=== PATIENT | male | born 2000 | race Caucasian/White ===

== ENCOUNTER 2024-05-30 02:24 | Emergency (ER) | payer MEDICAID, SELFPAY ==
--- NOTE | 2024-05-30 | ECG_ITS ---
Test Reason : CP Blood Pressure : / mmHG Vent. Rate : 086 BPM Atrial Rate : 086 BPM P-R Int : 136 ms QRS Dur : 076 ms QT Int : 324 ms P-R-T Axes : 074 066 063 degrees QTc Int : 387 ms Normal sinus rhythm Normal ECG No previous ECGs available Referred By: Generic ED Physician Electronically Signed By:Andrew Merino
--- NOTE | ~2024-05-30 | XR_ITS ---
EXAMINATION: XR CHEST CLINICAL INFORMATION: Shortness of breath. COMPARISON: November 23, 2021 TECHNIQUE: Frontal view of the chest was obtained. FINDINGS: No significant abnormality is noted involving the heart, lungs, mediastinum, bony thorax or soft tissues. XR/XR chest 1V IMPRESSION: Unremarkable examination. Electronically signed by: Deion Stuart MD 05/30/2024 03:41 AM EDT
[2024-05-30 02:28] VITALS: BP 116/71; PULSE 89; RESP 18; TEMP 37.3; O2SAT 96; BMI 27.2
--- NOTE | 2024-05-30 02:39 | ED_ITS ---
HPI - Chest Pain General Chief Complaint: Chest Pain Stated Complaint: hard time breathing, chest burning, headache Time Seen by Provider: 05/30/24 02:38 Source: patient Mode of arrival: ambulatory Limitations: no limitations History of Present Illness ED Provider: sid CUEVAS narrative: Patient no significant past medical history shortness of breath for last few days patient's used to vape not vaping anymore under increased stress as new baby's coming in. Related Data Previous Rx's ?Medication ?Instructions ?Recorded albuterol sulfate 90 mcg/actuation 2 puff inhalation Q6H PRN 05/30/24 aerosol inhaler shortness of breath or wheezing #8.5 grams prednisone 20 mg tablet 40 mg (2 x 20 mg) PO DAILY #10 tabs 05/30/24 Allergies Allergy/AdvReac Type Severity Reaction Status Date / Time amoxicillin Allergy Hives Verified 05/30/24 02:32 Review of Systems 2 Review of Systems: Yes all other systems are reviewed and are negative PMFSH Social History Social History Advance Directives: No Advance Directives Information Provided: Yes Physical Exam 2 Vital Signs: Vital Signs: Last Vital Signs Temp 98.1 F 05/30/24 05:17 Pulse 85 05/30/24 05:17 Resp 16 05/30/24 05:17 BP 113/72 05/30/24 05:17 Pulse Ox 97 05/30/24 05:17 O2 Del Method Room Air 05/30/24 05:17 BMI result Body Mass Index 27.2 Appearance: Alert. Oriented X3. No acute distress. ENT: Pharynx normal. Oral Mucosa moist Neck: Normal inspection. Neck supple. CVS: Normal heart rate and rhythm. Pulses normal. Respiratory: No respiratory distress. Equal air entry bilateral, prolonged expiration Abdomen: Soft and nontender. Bowel sounds are present, no mass palpable, no CVA tenderness Skin: Skin warm and dry. Normal skin color. Normal skin turgor. Extremities: No lower extremity edema. No calf tenderness Neuro: Oriented X 3. No motor deficit. Medications Administered Discontinued Medications Generic Name Dose Route Start Last Admin Trade Name Freq PRN Reason Stop Dose Admin Albuterol Sulfate 2 puff 05/30/24 06:10 05/30/24 06:16 Albuterol Sulfate 90 Mcg 8 Gm Inhaler INHALE 05/30/24 06:11 2 puff ONCE ONE Administration Albuterol Sulfate 2.5 mg/ 0 mg 05/30/24 02:42 05/30/24 02:54 Albuterol/Ipratropium 3 ml INHALE 05/30/24 02:43 7.5 dose ONCE ONE Administration Prednisone 40 mg 05/30/24 06:02 05/30/24 06:15 Prednisone 20 Mg Tablet PO 05/30/24 06:03 40 mg ONCE ONE Administration Medical Decision Making Differential Diagnosis Differential Diagnoses: The differential diagnosis associated with the presentation includes Bronchitis/pneumonia/asthma Lab Data MDM Lab Attestation statement: I reviewed the patient's lab results. 05/30/24 02:46 05/30/24 02:46 Labs: Lab Results 05/30/24 05/30/24 Range/Units 02:46 05:24 WBC 13.9 H (4.8-10.8) X10*3/uL RBC 5.07 (4.60-5.80) X10*6/uL Hgb 15.2 (14.0-18.0) g/dl Hct 43.5 (42.0-52.0) % MCV 85.8 (80.0-98.0) fL MCH 30.0 (27.0-33.0) pg MCHC 34.9 (31.0-36.0) g/dl RDW 13.2 (11.0-16.0) % Plt Count 252 (160-400) X10*3/uL MPV 9.8 (9.4-12.4) fL Immature Gran % (Auto) 0.3 (0.0-0.4) % Neut % (Auto) 76.1 H (45-73) % Lymph % (Auto) 12.0 L (20-40) % [place] % (Auto) 6.8 (2-11) % Eos % (Auto) 4.2 H (0-4) % Baso % (Auto) 0.6 (0-2) % Lymph # (Auto) 1.7 (1.2-4.9) X10*3/uL [place] # (Auto) 0.9 (0.1-1.2) X10*3/uL Eos # (Auto) 0.6 H (0.0-0.4) X10*3/uL Baso # (Auto) 0.1 (0.0-0.2) X10*3/uL Abs Immat Gran (auto) 0.04 H (0.00-0.03) X10*3/uL Absolute Neuts (auto) 10.6 H (2.0-8.3) x10*3/uL Absolute Nucleated RBC 0.000 (0.0-0.012) X10*3/uL Nucleated RBC % (auto) 0.0 (0.0-0.2) /100WBC Sodium 138 (135-145) mmol/L Potassium 3.5 (3.3-5.1) mmol/L Chloride 104 (96-108) mmol/L Carbon Dioxide 24 (22-29) mmol/L Anion Gap 14 (12-20) BUN 12 (9-16) mg/dL Creatinine 1.08 (0.5-1.4) mg/dL Estim Creat Clear Calc 98.6 Estimated GFR > 60 Random Glucose 91 (60-115) mg/dL Calcium 9.9 (8.4-10.2) mg/dL Total Bilirubin 0.8 (0.0-1.0) mg/dL AST 38 H (5-37) U/L ALT 71 H (0-40) U/L Alkaline Phosphatase 92 (39-117) U/L Troponin I High Sens < 2.7 (<3.5-35.0) ng/L Total Protein 7.9 (6.5-8.0) g/dL Albumin 4.7 (3.5-5.0) g/dL Urine Color Yellow Urine Appearance Clear Urine pH 6.5 (5.0-9.0) Ur Specific Rentz 1.025 (1.005-1.025) Urine Protein Negative (Neg-Trace) mg/dL Urine Glucose (UA) Negative (Negative) mg/dL Urine Ketones Trace (Negative) mg/dL Urine Blood Negative (Negative) Urine Nitrite Negative (Negative) Ur Leukocyte Esterase Negative (Negative) Urine RBC 0-2 (0-2) /HPF Urine WBC 0-5 (0-5) /HPF Ur Squamous Epith Cells 0-2 (0-2) /HPF Urine Bacteria None Seen (None Seen) Hyaline Casts 0-2 (0-2) /LPF Urine Opiates Screen Not Detected (Not Detect) Ur Buprenorphine Scrn Not Detected (Not Detect) ng/mL Ur Oxycodone Screen Not Detected (Not Detect) ng/mL Urine Methadone Screen Not Detected (Not Detect) ng/mL Urine Fentanyl Screen Not Detected (Not Detect) Ur Barbiturates Screen Not Detected (Not Detect) Ur Phencyclidine Scrn Not Detected (Not Detect) Ur Amphetamines Screen Not Detected (Not Detect) U Benzodiazepines Scrn Not Detected (Not Detect) Urine Cocaine Screen Not Detected (Not Detect) U Marijuana (THC) Screen POSITIVE H (Not Detect) Independent Interpretation I performed an independent interpretation of an: Plain X-Ray Radiology Impression Discussion of test interpretation with radiology: I have reviewed the radiologist's reading. Discharge Plan Discharge Clinical Impression: Allergic bronchitis Patient Disposition: Home, Self-Care Instructions: Acute Bronchitis (ED) Prescriptions: New prednisone 20 mg tablet 40 mg PO DAILY Qty: 10 0RF albuterol sulfate 90 mcg/actuation HFA aerosol inhaler 2 puff inhalation Q6H PRN (Reason: shortness of breath or wheezing) Qty: 8.5 0RF Print Language: Luxembourgish
[2024-05-30 02:52] LABS: MANUAL DIFF FLAG NO
[2024-05-30 02:53] LABS: Basophils Absolute Auto 0.1 X10*3/uL (0.0-0.2); Basophils Percent Auto 0.6 % (0-2); Eosinophils Absolute Auto 0.6 X10*3/uL (0.0-0.4); Eosinophils Percent Auto 4.2 % (0-4); Hematocrit 43.5 % (42.0-52.0); Hemoglobin 15.2 g/dl (14.0-18.0); Imm Gran Abs Auto 0.04 X10*3/uL (0.00-0.03); Imm Gran Pct Auto 0.3 % (0.0-0.4); Lymphocytes Absolute Auto 1.7 X10*3/uL (1.2-4.9); Mean Corpuscular HGB Conc 34.9 g/dl (31.0-36.0); Mean Corpuscular Volume 85.8 fL (80.0-98.0); Mean Platelet Volume 9.8 fL (9.4-12.4); Monocytes Absolute Auto 0.9 X10*3/uL (0.1-1.2); Monocytes Percent Auto 6.8 % (2-11); Neutrophils Absolute Auto 10.6 x10*3/uL (2.0-8.3); Neutrophils Percent Auto 76.1 % (45-73); Platelet Count 252 X10*3/uL (160-400); Red Blood Count 5.07 X10*6/uL (4.60-5.80); Red Cell Distribution Width 13.2 % (11.0-16.0); White Blood Count 13.9 X10*3/uL (4.8-10.8)
[2024-05-30] MEDS: Albuterol Sulfate 2.5 MG, Albuterol/Iprat 2.5/0.5MG 3 ML 3 ML INHALE (02:54)
[2024-05-30 02:57] VITALS: PULSE 87; RESP 20; O2SAT 99
[2024-05-30 03:09] LABS: Alanine Aminotransferase 71 U/L (0-40); Albumin Level 4.7 g/dL (3.5-5.0); Alkaline Phosphatase 92 U/L (39-117); Anion Gap 14 (12-20); Aspartate Amino Transferase 38 U/L (5-37); Bilirubin Total 0.8 mg/dL (0.0-1.0); Blood Urea Nitrogen 12 mg/dL (9-16); Calcium 9.9 mg/dL (8.4-10.2); Carbon Dioxide 24 mmol/L (22-29); Chloride 104 mmol/L (96-108); Creatinine Clr Calc Pharmacy 98.6; Estimated Glomerular Filt Rate > 60; Glucose Random 91 mg/dL (60-115); Potassium 3.5 mmol/L (3.3-5.1); Sodium 138 mmol/L (135-145); Total Protein 7.9 g/dL (6.5-8.0)
[2024-05-30 03:14] LABS: Troponin-I High Sensitivity < 2.7 ng/L (<3.5-35.0)
[2024-05-30 05:17] VITALS: BP 113/72; PULSE 85; RESP 16; TEMP 36.7; O2SAT 97
[2024-05-30 05:31] LABS: Appearance Urine Clear; Color Urine Yellow; Glucose Urine UA Negative (Negative); Leukocyte Esterase Urine Negative (Negative); Nitrite Urine Negative (Negative); PH 6.5 (5.0-9.0); Specific Gravity - Urine 1.025 (1.005-1.025); Urine Blood Negative (Negative); Urine Ketones Trace mg/dL (Negative); Urine Protein Negative (Neg-Trace)
[2024-05-30 05:36] LABS: Bacteria Urine None Seen (None Seen); Hyaline Casts Urine 0-2 /LPF (0-2); RBC Urine 0-2 /HPF (0-2); Squamous Epithelial Cell Urine 0-2 /HPF (0-2); WBC Urine 0-5 /HPF (0-5)
[2024-05-30 05:46] LABS: Amphetamine Screen Urine Not Detected (Not Detect); Barbiturates, Urine Not Detected (Not Detect); Benzodiazepines Screen Urine Not Detected (Not Detect); Buprenorphine Scr Not Detected (Not Detect); Cannabinoid Screen Urine POSITIVE (Not Detect); Cocaine Screen Urine Not Detected (Not Detect); Fentanyl, urine Not Detected (Not Detect); Methadone Screen, Urine Not Detected (Not Detect); Opiate Screen Urine Not Detected (Not Detect); Oxycodone Screen Urine Not Detected (Not Detect); Phencyclidine Screen Urine Not Detected (Not Detect)
[2024-05-30] MEDS: predniSONE 20 MG TABLET 40 MG PO (06:15)
[2024-05-30] MEDS: Albuterol Sulfate 90 MCG 8 GM INHALER 2 PUFF INHALE (06:16)
[2024-05-30 06:30] VITALS: BP 113/72; PULSE 85; RESP 16; TEMP 36.7; O2SAT 97
== END 2024-05-30 06:31 | disposition home or self-care (01) ==
PROVIDERS: Emergency Provider Internal Medicine
DX: J45.909 Unspecified asthma, uncomplicated (principal); R07.9 Chest pain, unspecified
CPT/HCPCS: 36415; 71045; 80053; 80307; 81001; 84484; 85025; 93005; 94640; 99284

== ENCOUNTER → 2024-05-30 02:24 | Outpatient (BNV) | payer MEDICAID, SELFPAY | PROVIDERS: Emergency Provider Internal Medicine; Visit Provider Internal Medicine Cardiovascular Disease | DX: R07.9 Chest pain, unspecified (principal) | CPT/HCPCS: 93010 ==

== ENCOUNTER 2025-06-10 12:50 | Emergency (ER) | payer OTHER, SELFPAY ==
--- NOTE | ~2025-06-10 | XR_ITS ---
CLINICAL HISTORY: R knee pain s p hyperextention 4 view right knee Comparison: None provided Findings: There is no displaced fracture. There is deepening of the lateral femoral notch. No significant loss of joint space, osteophytes, or erosions. There is a small to moderate knee effusion. No radiopaque foreign body. IMPRESSION: 1. There is a small to moderate knee effusion. 2. There is deepening of the lateral femoral notch. This finding can be seen in ACL injury. Correlate with physical examination findings. This document has been electronically signed by: Evi Kingston MD on 06/10/2025 14:06:42
[2025-06-10 12:54] VITALS: BP 129/77; PULSE 69; RESP 18; TEMP 36.6; O2SAT 96; BMI 21.2
--- NOTE | 2025-06-10 12:54 | ED.LOWEXIN ---
HPI - Extremity Injury (Lower) General Chief Complaint: Extremity Injury, Lower Stated Complaint: leg inj Time Seen by Provider: 06/10/25 13:06 Source: patient, RN notes reviewed and old records reviewed Mode of arrival: ambulatory History of Present Illness ED Provider: Madina Nolan PA-C HPI Narrative: 24-year-old male with no significant past medical history presenting to the ED complaining of right knee pain s/p hyperextending at work yesterday. 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 Denies injury to other area, head trauma, LOC, weakness. Related Data Previous Rx's ?Medication ?Instructions ?Recorded albuterol sulfate 90 mcg/actuation 2 puff inhalation Q6H PRN 05/30/24 aerosol inhaler shortness of breath or wheezing #8.5 grams prednisone 20 mg tablet 40 mg (2 x 20 mg) PO DAILY #10 tabs 05/30/24 Allergies Allergy/AdvReac Type Severity Reaction Status Date / Time amoxicillin Allergy Hives Verified 06/10/25 12:58 Review of Systems Review of Systems: Yes all other systems are reviewed and are negative Constitutional: Constitutional: Reports as per [facility] Past Medical History Attestation statement: The following information was validated with the patient. Source: old records reviewed Social History Social History Advance Directives: No Advance Directives Information Provided: Yes Do you have a plan to hurt others: No Plan Physical Exam Vital Signs: Vital Signs: Last Vital Signs Temp 98.0 F 06/10/25 15:41 Pulse 66 06/10/25 15:41 Resp 18 06/10/25 15:41 BP 128/72 06/10/25 15:41 Pulse Ox 96 06/10/25 15:41 O2 Del Method Room Air 06/10/25 15:41 BMI result Body Mass Index 21.2 Const: General: cooperative, healthy appearing and no acute distress Orientation/consciousness: patient oriented x3 Limitations: no limitations HEENT: Head: Yes normal to inspection and Yes atraumatic Ears: hearing grossly normal bilaterally General nose exam: Normal external nose present Face and sinus: Yes normal facial exam Eyes: General: appearance normal, both eyes and all related structures EOM: EOMs intact bilaterally Neck: Neck: Yes normal visual inspection and Yes no meningeal signs Resp: Effort & Inspection: normal respiratory effort and no respiratory distress Cardio: Rate: regular rate Skin: Rashes: no rashes Wounds: no wounds Neuro: General: patient oriented x3, tone normal and no meningeal signs Cranial nerves: Yes CN's II-XII intact bilaterally Gait exam (Neuro): Antalgic gait present Extrem: Other: Right knee with appreciable swelling. + tender to palpation to posterior aspect. Limited full flexion and extension secondary to pain. Neurovascularly intact distally. No calf tenderness. Course Course Course Narrative: This is a Rapid Medical Exam performed in triage by Madina Nolan PA-C. Full HPI, ROS and PE to be performed by primary ED provider. 24 yo M presenting to the ED c/o R knee pain s/p hyperextending at work yesterday after jumping off truck while loading tires. PE: ambulating w/limping gait with cane. R knee with swelling + ttp to posterior knee Plan: XR XR knee RT 4V IMPRESSION: 1. There is a small to moderate knee effusion. 2. There is deepening of the lateral femoral notch. This finding can be seen in ACL injury. Correlate with physical examination findings. >DEYVI wrap & crutches supplied. Patient only close orthopedic follow up Results discussed with patient including worrisome signs and symptoms and strict return precautions, and when to return to the emergency department. They verbalized understanding and feel safe for discharge at this time. Medical Decision Making Medical Decision Making MDM Narrative: 24-year-old male with no significant past medical history presenting to the ED complaining of right knee pain s/p hyperextending at work yesterday. On exam vital signs stable, NAD, nontoxic appearing, ambulating with limping gait with cane. Physical exam as noted above. Concern for sprain/tendon/ligamental injury or meniscal injury. Rule out fracture. Unlikely DVT. No evidence of septic joint Plan: X-ray Please refer to course for remaining clinical decision making, interpretation of labs/imaging results, and discussions with consultants and/or family members. Differential Diagnosis Differential Diagnoses: The differential diagnosis associated with the presentation includes As above Independent Interpretation I performed an independent interpretation of an: Plain X-Ray Radiology Impression Discussion of test interpretation with radiology: I have reviewed the radiologist's reading. External Record Review External record reviewed: Inpatient record, Office record, Outpatient record, Prior outpatient labs, Prior outpatient radiology, Primary care record and Outside ED record Tests considered The following testing was considered but not selected: As above Prescription Management I considered prescription management with: Pain Medication Social Determinants Patient?s care significantly limited by Social Determinants of Health including: Other Social Determinant of Health Discharge Plan Discharge Clinical Impression: Injury of knee Patient Disposition: Home, Self-Care Instructions: Knee Pain (ED) Additional Instructions: Your x-ray shows a joint effusion and also suspicious for ACL injury Wear Deyvi wrap for compression and stability Use crutches as needed. Bear weight as tolerated Ice and elevate Take Tylenol and ibuprofen for pain/swelling YOU NEED TO FOLLOW UP WITH ORTHOPEDICS If pain becomes severe/unmanageable, area looks infected return to the ED Prescriptions: No Action prednisone 20 mg tablet 40 mg PO DAILY Qty: 10 0RF albuterol sulfate 90 mcg/actuation HFA aerosol inhaler 2 puff inhalation Q6H PRN (Reason: shortness of breath or wheezing) Qty: 8.5 0RF [place] [facility] [place] [facility] [place] Group] - 1 week Stand Alone Forms: Work/School Release Interventions: ED Discharge Assessment Last Done: 06/10/25 15:41 Discharge Date/Time: 06/10/25 15:42 Print Language: Uzbek
--- OUTSIDE RECORDS SUMMARY | 2025-06-10 14:59 | XMS_ITS | Patient Health Record ---
Author Organization [facility] Address [address] [place] [address] Care Team Providers Care Geropsychologist Name Role Phone NO, PCP Primary Care Provider [phone] Horacio Sandhu Unavailable [phone] Reason For Referral No Information Plan Of Treatment No Information Insurance Providers Payer Name Payer Address Payer Phone Subscriber Number Group Number Insured Name Patient Relationship to Insured Coverage Start Date Coverage End Date [facility] [address] [place] [phone] [id number] Jose F Mcgarry Self - patient is the insured 4
[2025-06-10 15:41] VITALS: BP 128/72; PULSE 66; RESP 18; TEMP 36.7; O2SAT 96
== END 2025-06-10 15:42 | disposition home or self-care (01) ==
PROVIDERS: Emergency Provider Emergency Medicine Emergency Medical Services
DX: S89.91XA Unspecified injury of right lower leg, initial encounter (principal); M25.561 Pain in right knee; X58.XXXA Exposure to other specified factors, initial encounter; Y93.9 Activity, unspecified; Y92.89 Other specified places as the place of occurrence of the external cause; Y99.9 Unspecified external cause status
CPT/HCPCS: 73564; 99282; 99283

== ENCOUNTER → 2025-06-10 12:57 | Outpatient (BNV) | payer MEDICAID, SELFPAY | PROVIDERS: Emergency Provider Emergency Medicine Emergency Medical Services; Visit Provider Radiology Diagnostic Radiology | DX: M25.461 Effusion, right knee (principal) | CPT/HCPCS: 73564 ==

== ENCOUNTER 2025-06-16 14:52 | Emergency (ER) | payer OTHER, SELFPAY ==
--- NOTE | ~2025-06-16 | US_ITS ---
EXAMINATION: US TRIPLEX LOWER EXTREMITY, RIGHT CLINICAL INFORMATION: Calf pain COMPARISON: None available. TECHNIQUE: Color-flow triplex imaging with spectral analysis and compression Doppler were performed on the right lower extremity. FINDINGS: Respiratory variation, normal compression and augmented flow are noted throughout the right lower extremity. The visualized common femoral vein, superficial femoral vein, profunda femoral vein, popliteal vein and midcalf peroneal and posterior tibial venous segments show no evidence of deep venous thrombosis. There is a small Adams's cyst. US/US venous duplex LE RT IMPRESSION: No evidence of deep venous thrombosis involving the right lower extremity. Electronically signed by: Panfilo Arzate MD 06/16/2025 04:40 PM EST
[2025-06-16 15:19] VITALS: BP 130/66; PULSE 75; RESP 16; TEMP 36.7; O2SAT 98; BMI 32.9
--- NOTE | 2025-06-16 15:20 | ED_ITS ---
HPI - Extremity Injury (Lower) General Chief Complaint: Extremity Problem Stated Complaint: checking in for Dr note Time Seen by Provider: 06/16/25 17:04 Source: patient and RN notes reviewed Mode of arrival: ambulatory Limitations: no limitations History of Present Illness ED Provider: Concha Guevara PA-C HPI Narrative: This is a [id number]-male who presents to the ER seeking an excuse for work. Patient was seen here on 06/10 after hyperextending his right knee. He states that he is unable to return back to work and needs a medical clearance. He states that he called orthopedics and they are unable to see him until June 26. Patient does report increased swelling to his right leg and states that he can no longer put on his boots due to the swelling. No other complaints or concerns at this time. MD complaint: knee injury Onset (ago): day(s) Type of Injury: hyperextension Place: work Relieving factors: NSAID Exacerbating factors: movement and palpation Related Data Previous Rx's ?Medication ?Instructions ?Recorded albuterol sulfate 90 mcg/actuation 2 puff inhalation Q 6H PRN 05/30/24 aerosol inhaler shortness of breath or wheez ing #8.5 grams prednisone 20 mg tablet 40 mg (2 x 20 mg) PO DAILY # 10 tabs 05/30/24 acetaminophen 500 mg tablet 1,000 mg (2 x 500 mg) PO Q 8H PRN 06/16/25 (Tylenol Extra Strength) pain #30 tabs ibuprofen 600 mg tablet 600 mg PO Q6H PRN pain #30 t abs 06/16/25 Allergies Allergy/AdvReac Type Severity Reaction Status Date / Time amoxicillin Allergy Hives Verified 06/20/25 13:19 Review of Systems Review of Systems: Constitutional : No Fever, No Chills ENT/Mouth : No sore throat, No Rhinorrhea Eyes: No Eye Pain, No Swelling, No Redness Cardiovascular : No Chest Pain, No SOB Respiratory : No Cough, No Sputum Gastrointestinal : No Nausea, No Vomiting, No Diarrhea, No abdominal Pain Genitourinary : No Dysuria, No Hematuria Musculoskeletal : + joint pain, No Myalgias, No Joint Swelling Skin : No Skin Lesions Neuro : No Weakness, No Numbness, No Headache All other systems reviewed and are negative Yes all other systems are reviewed and are negative Constitutional: Constitutional: Reports as per [facility] Social History Social History (Updated 06/20/25 @ 13:20 by Mery Paez) Alcohol intake: never Patient Tobacco Use Status: Never used Tobacco Current occupational status: employed Current occupation: [employer]/ right hand dominant Physical Exam Vital Signs: Vital Signs: Last Vital Signs Temp 98.1 F 06/16/25 17:40 Pulse 75 06/16/25 17:40 Resp 16 06/16/25 17:40 BP 130/66 06/16/25 17:40 Pulse Ox 98 06/16/25 17:40 O2 Del Method Room Air 06/16/25 17:40 BMI result Body Mass Index 32.9 Const: General: cooperative, comfortable and no acute distress Orientation/consciousness: patient oriented x3 Limitations: no limitations HEENT: Head: Yes normal to inspection, Yes normocephalic and Yes atraumatic Ears: hearing grossly normal bilaterally General nose exam: Normal external nose present Face and sinus: Yes normal facial exam Mouth: Normal oral and palatal mucosa present, oropharynx normal and moist mucous membranes Throat: Yes posterior oropharynx normal Eyes: General: appearance normal, both eyes and all related structures Eyelids: Yes eyelids normal Conjunctivae: conjunctivae normal Sclerae: sclerae normal Pupils: Equal, round and reactive pupils present EOM: EOMs intact bilaterally Neck: Neck: Yes normal visual inspection, Yes full ROM and Yes no lymphadenopathy Lymphatic: no lymphadenopathy noted Chest: Chest palpation & inspection: normal inspection of the chest Resp: Effort & Inspection: normal respiratory effort and able to speak in complete sentences Auscultation: clear to auscultation bilaterally, no crackles, no rales, no rhonchi and no wheezes Cardio: Rate: regular rate Rhythm: regular rhythm Heart sounds: S1 normal heart sound present and S2 normal heart sound present GI: Inspection: Yes normal to inspection Skin: General skin exam: no rashes or lesions noted Trauma: no lacerations or abrasions Wounds: no wounds Neuro: General: patient oriented x3 and moves all extremities Cranial nerves: Yes Equal, round and reactive pupils present Extrem: Other: Right knee with moderate joint effusion noted, no overlying erythema, able to minimally flex and extend - inhibited by pain. Right calf with 1+ edema noted, and ttp. Achilles intact. DP/PT pulses 2+ General: Yes normal to inspection Right upper extremity: normal to inspection Left upper extremity: normal to inspection Left lower extremity: normal to inspection Medical Decision Making Medical Decision Making MDM Narrative: This is a 24-year-old male who presents to the ER for medical clearance. He hyperextended his right knee at work and his work is requiring medical clearance to return. Pt still using crutches and deyvi wrap and is awaiting orthopedic appt on 06/27. Pt with calf tenderness to palption, given this, US was ordered to r/o DVT, which was negative. Discussed with patient that I am unable to medically clear him and that he needs to follow up with ortho for MRI and further management. Pt given work note to excuse his absence. Advised to return with any new or worsening symptoms. No new injury therefore repeat xray not warranted. Pt understands and agrees with plan, pt stable for d.c. Differential Diagnosis Differential Diagnoses: The differential diagnosis associated with the presentation includes sprain, strain, DVT, ligamentous injury. Radiology Impression Discussion of test interpretation with radiology: I have reviewed the radiologist's reading. Radiologist Impression: [place] [id number] Ultrasound Report Signed Patient: Jose F Mcgarry MR#: [id number] : 2000 Acct:[id number] Age/Sex: 24 / M ADM Date: 06/16/25 Loc: .ED Attending Dr: Ordering Physician: Concha Guevara Date of Service: 06/16/25 Procedure(s): US venous duplex LE RT Accession Number(s): [id number] cc: Physician,Unknown ; Concha Guevara~ Reason for Exam: calf pain EXAMINATION: US TRIPLEX LOWER EXTREMITY, RIGHT CLINICAL INFORMATION: Calf pain COMPARISON: None available. TECHNIQUE: Color-flow triplex imaging with spectral analysis and compression Doppler were performed on the right lower extremity. FINDINGS: Respiratory variation, normal compression and augmented flow are noted throughout the right lower extremity. The visualized common femoral vein, superficial femoral vein, profunda femoral vein, popliteal vein and midcalf peroneal and posterior tibial venous segments show no evidence of deep venous thrombosis. There is a small Adams's cyst. US/US venous duplex LE RT IMPRESSION: No evidence of deep venous thrombosis involving the right lower extremity. Electronically signed by: Panfilo Arzate MD 06/16/2025 04:40 PM [facility] [place]ictated By: Panfilo Arzate MD External Record Review External record reviewed: Inpatient record, Office record, Outpatient record, Prior outpatient labs, Prior outpatient radiology, Primary care record and Outside ED record Discharge Plan Discharge Clinical Impression: Right knee sprain Patient Disposition: Home, Self-Care Instructions: Knee Sprain (ED) Additional Instructions: You were seen in the emergency department due to knee pain. We did perform an ultrasound to rule out a blood clot, you do not have a blood clot in her right lower leg. You do have evidence of a Adams's cyst, this is likely not the source of your pain. You may have injured your ACL or another ligament in your knee. You need to follow-up with the financial retirement plan specialist. Rest, ice, elevate. Alternate between ibuprofen and or Tylenol as needed for pain and swelling. Continue using Deyvi wrap and crutches. Prescriptions: New ibuprofen 600 mg tablet 600 mg PO Q6H PRN (Reason: pain) Qty: 30 0RF acetaminophen [Tylenol Extra Strength] 500 mg tablet 1,000 mg PO Q8H PRN (Reason: pain) Qty: 30 0RF No Action prednisone 20 mg tablet 40 mg PO DAILY Qty: 10 0RF albuterol sulfate 90 mcg/actuation HFA aerosol inhaler 2 puff inhalation Q6H PRN (Reason: shortness of breath or wheezing) Qty: 8.5 0RF Referrals: [facility] [place] [facility] [Provider Group] Stand Alone Forms: Work/School Release Interventions: ED Discharge Assessment Last Done: 06/16/25 17:40 Discharge Date/Time: 06/16/25 17:41 Print Language: Occitan
[2025-06-16 17:40] VITALS: BP 130/66; PULSE 75; RESP 16; TEMP 36.7; O2SAT 98
== END 2025-06-16 17:41 | disposition home or self-care (01) ==
PROVIDERS: Emergency Provider Emergency Medicine
DX: S83.91XA Sprain of unspecified site of right knee, initial encounter (principal); R60.0 Localized edema; X58.XXXA Exposure to other specified factors, initial encounter; Y93.9 Activity, unspecified; Y92.9 Unspecified place or not applicable; Y99.0 Civilian activity done for income or pay
CPT/HCPCS: 93971; 99282; 99284

== ENCOUNTER → 2025-06-16 15:23 | Outpatient (BNV) | payer OTHER, SELFPAY | PROVIDERS: Visit Provider Radiology Diagnostic Radiology | DX: M79.661 Pain in right lower leg (principal) | CPT/HCPCS: 93971 ==

== ENCOUNTER 2025-06-20 12:54 | Outpatient (AMB) | payer OTHER, SELFPAY ==
--- NOTE | 2025-06-20 13:09 | A.OFFVIS_ITS ---
Intake Visit Reasons: ED - RT knee injury, 06/09/25 Intake Note: Jose F is a 24 year old male who presents today for a ED follow up with crutches for his right knee injury, 06/09/25. Patient reports he was throwing away some tires and landed wrong, he felt a snap/pop. Patient states that he notices swelling right after the injury. He is not able to put weight on his knee. Patient hasn't been able to go to work since 06/10/25. He states that he has tried taking ibuprofen but it doesnt give him relief. [employer]: Kneeling, lifting heavy more than 150lbs, on his feet 8 + hours walking and standing, up and down lifts, normal work days ( M - Sat) IMPRESSION: 1. There is a small to moderate knee effusion. 2. There is deepening of the lateral femoral notch. This finding can be seen in ACL injury. Correlate with physical examination findings. Allergies amoxicillin Allergy (Verified 06/20/25 13:19) Hives HPI HPI ED - RT knee injury, 06/09/25: Details: Mr. Mcgarry is a 24-year-old male who presents to the office today after a right knee injury that occurred at work on 06/09/2025. He reports that he jumped off the back of a truck and landed on both feet hyperextending the right knee. He felt a pop/snap. He presented to the emergency department after he was unable to bear weight on the right lower extremity. X-rays were obtained and significant for a moderate effusion and deepening of the lateral femoral notch suggesting ACL injury. Patient states that he has not been at work since 06/10/2025 due to inability to ambulate and pain. [employer]: Kneeling, lifting heavy more than 150lbs, on his feet 8 + hours walking and standing, up and down lifts, normal work days ( M - Sat) [facility] Social History (Updated 06/20/25 @ 13:20 by Mery Paez) Alcohol intake: never Patient Tobacco Use Status: Never used Tobacco Current occupational status: employed Current occupation: [employer]/ right hand dominant Review of Systems Const All systems reviewed & are unremarkable except as noted in HPI and below Physical Exam Const General: cooperative, healthy appearing and no acute distress Resp Effort & Inspection: normal respiratory effort and able to speak in complete sentences Extrem Other: Right knee: Moderate effusion. Tenderness to palpation along the medial and lateral joint lines. Range of motion 10-90 degrees. Unable to assess Cookie's and anterior drawer due to patient guarding and pain. NVI. Psych Appearance: grossly normal Mental Status: mental status grossly normal Attitude: cooperative Assessment & Plan Assessment & Plan (1) Rupture of anterior cruciate ligament of left knee: Code(s): S83.512A - Sprain of anterior cruciate ligament of left knee, initial encounter Category: Medical Plan Mr. Mcgarry is a 24-year-old male who presents to the office today after a right knee injury that occurred at work on 06/09/2025. He reports that he jumped off the back of a truck and landed on both feet hyperextending the right knee. He felt a pop/snap. He presented to the emergency department after he was unable to bear weight on the right lower extremity. X-rays were obtained and significant for a moderate effusion and deepening of the lateral femoral notch suggesting ACL injury. Patient states that he has not been at work since 06/10/2025 due to inability to ambulate and pain. While in the office today, I have recommended that we move forward with an MRI to further evaluate the integrity of the right knee and surrounding structures. Due to the nature of the injury, there is concern for an ACL injury versus occult fracture. Patient is to remain nonweightbearing on the right lower extremity with crutches until the MRI is obtained. I have given the patient a playmaker knee brace that he will wear in the meantime. He will remain out of work pending MRI imaging. Right knee x-ray obtained on 06/10/25: IMPRESSION: 1. There is a small to moderate knee effusion. 2. There is deepening of the lateral femoral notch. This finding can be seen in ACL injury. Correlate with physical examination findings. Orders: Orders MR knee RT wo con Today S83.512A - Sprain of anterior cruciate ligament of left knee, initial encounter Coding Level of Care Code New Pt Level 4 (21439) Diagnoses Rupture of anterior cruciate ligament of left knee S83.512A
--- OUTSIDE RECORDS SUMMARY | 2025-06-20 14:37 | XMS_ITS | Patient Health Record ---
Author Organization [facility] Address [address] [place] [address] Care Team Providers Care Auto Body Service Mechanic Name Role Phone NO, PCP Primary Care Provider [phone] Horacio Sandhu Unavailable [phone] Reason For Referral No Information Plan Of Treatment No Information Insurance Providers Payer Name Payer Address Payer Phone Subscriber Number Group Number Insured Name Patient Relationship to Insured Coverage Start Date Coverage End Date [facility] [address] [place] [phone] [id number] Jose F Mcgarry Self - patient is the insured 4
== END 2025-06-20 14:19 | disposition home or self-care (01) ==
LOC: HO.HOS 12:54
PROVIDERS: Visit Provider Physician Assistant
DX: S83.511A Sprain of anterior cruciate ligament of right knee, initial encounter (principal)
CPT/HCPCS: 99203

== ENCOUNTER → 2025-06-20 12:54 | Outpatient (BNVA) | payer OTHER, SELFPAY | PROVIDERS: Visit Provider Physician Assistant | DX: M25.561 Pain in right knee (principal); S83.512A Sprain of anterior cruciate ligament of left knee, initial encounter | CPT/HCPCS: 99202 ==

== ENCOUNTER 2025-06-22 09:09 | Outpatient (REF) | payer OTHER, SELFPAY ==
--- NOTE | ~2025-06-22 | MR_ITS ---
EXAMINATION: MR KNEE WITHOUT CONTRAST, RIGHT CLINICAL INFORMATION: Sprain of ACL COMPARISON: None available. TECHNIQUE: MRI of the knee without contrast was performed using routine sequences on a high-field scanner. FINDINGS: MENISCI: Medial Meniscus: Intact Lateral Meniscus: Complex tear of the posterior horn involving the articular surfaces and free edge. LIGAMENTS: Cruciate: ACL is abnormal, with abnormal signal, laxity, discontinuity , consistent with a full-thickness tear. Intact PCL. Collateral: Mild MCL sprain. LCL complex is intact. EXTENSOR MECHANISM: Intact ARTICULAR CARTILAGE/BONE: Patellofemoral Compartment: No significant chondral loss Medial Compartment: Edema from bone contusion in the posterior medial tibial plateau and the medial aspect of the medial femoral condyle. Lateral Compartment: Bone contusion in the proximal tibial epiphysis and metaphysis. Bone contusion lateral aspect lateral femoral condyle, with slight depression of the terminal sulcus. JOINT FLUID AND BURSAE: Moderate effusion. No significant Adams's cyst. Mild popliteus muscle edema, could be reactive to the adjacent marrow signal abnormality versus strain. Popliteus tendon is intact. T2 bright focus with foci of low T2 signal signal, posterior to the proximal fibula, measuring 1.7 x 1.1 x 1.8 cm. This of uncertain etiology. This could be related to sequela of trauma, ganglion cyst. Subcutaneous edema. MR/MR knee RT wo con IMPRESSION: * ACL abnormal findings consistent with full-thickness tear. * Complex tear of the posterior horn of the lateral meniscus. * Mild MCL sprain * Bone contusion in the medial tibial plateau and the medial femoral condyle. Bone contusion in the lateral tibial plateau and the lateral aspect of the lateral femoral condyle/terminal sulcus. *Moderate effusion. *Popliteus muscle edema could be reactive versus strain. *Mildly complex T2 bright focus measuring up to 1.8 cm, posterior to the proximal fibular. This of uncertain etiology. Differential consideration include sequela of trauma, tendinosis. Follow-up imaging as clinically indicated. Electronically signed by: Jacobo Chapman MD 06/22/2025 10:52 AM RACHAEL
--- OUTSIDE RECORDS SUMMARY | 2025-06-22 10:09 | XMS_ITS | Patient Health Record ---
Author Organization [facility] Address [address] [place] [address] Care Team Providers Care Salt Washer Name Role Phone NO, PCP Primary Care Provider Horacio Sandhu Unavailable [phone] Reason For Referral No Information Plan Of Treatment No Information Insurance Providers Payer Name Payer Address Payer Phone Subscriber Number Group Number Insured Name Patient Relationship to Insured Coverage Start Date Coverage End Date [facility] [address] [place] [phone] [id number] Jose F Mcgarry Self - patient is the insured 4
== END 2025-06-22 09:10 | disposition home or self-care (01) ==
LOC: HO.MRI 09:09
PROVIDERS: Visit Provider Physician Assistant
DX: S83.511A Sprain of anterior cruciate ligament of right knee, initial encounter (principal)
CPT/HCPCS: 73721

== ENCOUNTER → 2025-06-22 09:16 | Outpatient (BNV) | payer OTHER, SELFPAY | PROVIDERS: Visit Provider Radiology Diagnostic Ultrasound | DX: S83.512A Sprain of anterior cruciate ligament of left knee, initial encounter (principal); M25.461 Effusion, right knee; R60.0 Localized edema | CPT/HCPCS: 73721 ==

== ENCOUNTER 2025-06-27 08:10 | Outpatient (REF) | payer OTHER, SELFPAY ==
--- OUTSIDE RECORDS SUMMARY | 2025-06-28 15:42 | XMS_ITS | Patient Health Record ---
Author Organization [facility] Address [address] [place] [address] Care Team Providers Care Rolling Mill Operator Helper Name Role Phone NO, PCP Primary Care Provider Horacio Sandhu Unavailable [phone] Reason For Referral No Information Plan Of Treatment No Information Insurance Providers Payer Name Payer Address Payer Phone Subscriber Number Group Number Insured Name Patient Relationship to Insured Coverage Start Date Coverage End Date [facility] [address] [place] [phone] [id number] Jose F Mcgarry Self - patient is the insured 4
== END 2025-06-27 08:11 | disposition home or self-care (01) ==
LOC: HO.HOSX 08:10
PROVIDERS: Visit Provider Physician Assistant
DX: Z13.89 Encounter for screening for other disorder (principal)